=== PATIENT | female | born 1975 | race Two or more races ===

== ENCOUNTER 2016-08-24 18:53 | Emergency (ER) | payer MEDICAID ==
[~2016-08-24] VITALS: Ht 167.6 cm; Wt 68.0 kg
[2016-08-24] MEDS ORDERED: LORAZEPAM 0.5 MG TABLET PO ONE (21:00)
[2016-08-24] MEDS ORDERED: LORAZEPAM 1 MG TABLET ONE (21:02)
[2016-08-24 21:53] VITALS: BP 109/77
== END 2016-08-24 21:54 | disposition home or self-care (01) ==
LOC: ER 18:55
DX: F41.9 Anxiety disorder, unspecified (principal); R20.0 Anesthesia of skin; I10 Essential (primary) hypertension; Z98.890 Other specified postprocedural states
CPT/HCPCS: 93005; 99284; A4606; Z7610

== ENCOUNTER 2016-11-06 15:25 | Emergency (ER) | payer MEDICAID ==
[~2016-11-06] VITALS: Ht 175.3 cm; Wt 59.0 kg
--- NOTE | 2016-11-06 15:25 | NUR ---
Presents self to ed due to fever x 4 days. Pt is aao3, appears in no acute distress, respiration even and unlabored. Patient is also complaining of neck/ lymph nodes discomfort. Noted swollen and tender to touch. Patient is afebrile, non diaphoretic at this time.vss
--- NOTE | 2016-11-06 15:25 | NUR ---
Note undone in EDM - 11/06/16 at 1552 by HUAN Presents self to ed due to fever x 4 days. Pt is aao3, appears in no acute distress, respiration even and unlabored. Patient is also complaining of neck/ lymph nodes discomfort. Patient is afebrile, non diaphoretic at this time.vss
[2016-11-06] MEDS ORDERED: IV SET PRIMARY PUMP SET 1 EA INFUS.SET MC ONE (15:57)
[2016-11-06] MEDS ORDERED: IV NS 0.9% 1,000 ML ONE (15:57)
[2016-11-06] MEDS ORDERED: IV NS 0.9% 1,000 ML BAG IV ONE (16:00)
--- NOTE | 2016-11-06 16:11 | NUR ---
Iv accessed to [facility] 20. Blood sample sent to lab
[2016-11-06 16:12] LABS: BASOPHILS % (AUTO) 0.3 % (0.0-2.0); EOSINOPHILS # (AUTO) 0.1 /CMM (0.0-0.7); EOSINOPHILS % (AUTO) 1.4 % (0.0-6.0); HEMATOCRIT 35 % (33-45); HEMOGLOBIN 11.9 g/dL (11.5-14.8); LYMPHOCYTES # (AUTO) 1.4 /CMM (0.8-4.8); LYMPHOCYTES % (AUTO) 23.9 % (20.0-44.0); MEAN CORPUSCULAR HEMOGLOBIN 26 PG (26.0-33.0); MEAN CORPUSCULAR HGB CONC 34 g/dl (31.0-36.0); MEAN CORPUSCULAR VOLUME 78 fL (82-100); MONOCYTES # (AUTO) 0.5 /CMM (0.1-1.30); MONOCYTES % (AUTO) 7.9 % (2.0-12.0); NEUTROPHILS # (AUTO) 3.8 /CMM (1.8-8.9); NEUTROPHILS % (AUTO) 66.5 % (43.0-81.0); PLATELET COUNT (AUTO) 345 /CMM (150-450); RDW COEFFICIENT OF VARIATION 11.8 (11.5-15.0); RED BLOOD CELL COUNT(AUTO) 4.55 MIL/uL (4.0-5.2); WHITE BLOOD COUNT (AUTO) 5.8 K/uL (4.3-11.0)
[2016-11-06 16:21] LABS: CALCIUM, SERUM 9.3 mg/dL (8.5-10.1); CREATININE 0.5 mg/dL (0.6-1.3); POTASSIUM 3.8 mmol/L (3.5-5.1)
--- NOTE | 2016-11-06 16:24 | NUR ---
Nancy everett in [facility] - 11/06/16 at 1624 by HUAN pt was taken to ct
--- NOTE | 2016-11-06 16:24 | NUR ---
pt was taken to radiology dept
[2016-11-06 17:13] LABS: APPEARANCE,URINE Clear (CLEAR); BILIRUBIN,URINE Negative (NEGATIVE); BLOOD, URINE Trace-intact Ery/uL (NEGATIVE); COLOR,URINE Yellow (YELLOW); KETONES,URINE Negative (NEGATIVE); LEUKOCYTE ESTERASE ,URINE Negative (NEGATIVE); NITRITE, URINE Negative (NEGATIVE); PROTEIN,URINE Negative (NEGATIVE); UGLUCOSE Negative (NEGATIVE); UROBILINOGEN,URINE 0.2 EU/dL (0.2)
[2016-11-06 17:32] LABS: ADD URINE CULTURE NO; BACTERIA,URINE Rare /HPF (None Seen); RBC,URINE 0-2 /HPF (0-2); SQUAMOUS EPITHELIAL CELL,UR Few /HPF (None Seen); WBC,URINE 0-2 /HPF (0-3)
[2016-11-06] MEDS ORDERED: IV NS 0.9% 250 ML IV ONE (17:44)
[2016-11-06] MEDS ORDERED: IOHEXOL-300 100 ML VIAL IV ONE (17:44)
[2016-11-06] MEDS ORDERED: CT SWABBABLE VALVE TRANS SET 1 EA INFUS.SET MC ONE (17:44)
--- NOTE | 2016-11-06 19:34 | NUR ---
IV removed. Catheter intact and site benign. Pressure and 4x4 applied to site. No bleeding noted.
--- NOTE | 2016-11-06 19:34 | NUR ---
Patient discharged to home in stable condition. Written and verbal after care instructions given. Patient verbalizes understanding of instruction.
[2016-11-06 19:36] VITALS: BP 124/70
== END 2016-11-06 19:36 | disposition home or self-care (01) ==
LOC: ER 15:26
DX: E04.1 Nontoxic single thyroid nodule (principal); E05.90 Thyrotoxicosis, unspecified without thyrotoxic crisis or storm; I10 Essential (primary) hypertension; F41.9 Anxiety disorder, unspecified; R00.0 Tachycardia, unspecified
CPT/HCPCS: 36415; 70360-TC; 70491-TC; 76536-TC; 80048-TC; 81000-TC; 84436-TC; 84439-TC; 84443-TC; 84481; 85025-TC; A4606; J7030; J7050; Q9967; Z7610

== ENCOUNTER 2017-04-13 20:30 | Emergency (ER) | payer MEDICAID ==
[~2017-04-13] VITALS: Ht 167.6 cm; Wt 59.0 kg
[2017-04-13 21:01] VITALS: BP 116/69
== END 2017-04-13 22:46 | disposition home or self-care (01) ==
LOC: ER 20:30
DX: S70.361A Insect bite (nonvenomous), right thigh, initial encounter (principal); S80.862A Insect bite (nonvenomous), left lower leg, initial encounter; W57.XXXA Bitten or stung by nonvenomous insect and other nonvenomous arthropods, initial encounter; Y92.89 Other specified places as the place of occurrence of the external cause; Y93.89 Activity, other specified; Y99.8 Other external cause status
CPT/HCPCS: A4606; Z7610

== ENCOUNTER 2017-09-05 01:30 | Emergency (ER) | payer MEDICAID ==
[~2017-09-05] VITALS: Ht 175.3 cm; Wt 61.2 kg
[2017-09-05 01:44] VITALS: BP 136/91
[2017-09-05] MEDS ORDERED: PANTOPRAZOLE 40 MG TABLET.DR PO ONE ×2 (03:30→03:34)
[2017-09-05] MEDS ORDERED: ONDANSETRON 4 MG TAB.RAPDIS SL ONE (03:30)
[2017-09-05] MEDS ORDERED: ONDANSETRON 4 MG TAB.RAPDIS ONE (03:33)
--- NOTE | 2017-09-05 03:48 | NUR ---
Patient discharged to home in stable condition. Written and verbal after care instructions given. Patient verbalizes understanding of instruction. VSS. AMBULATED WITH STEADY GAIT OUT OF ER.
== END 2017-09-05 03:49 | disposition home or self-care (01) ==
LOC: ER 01:32
DX: F41.9 Anxiety disorder, unspecified (principal); R11.10 Vomiting, unspecified; R19.7 Diarrhea, unspecified; F10.10 Alcohol abuse, uncomplicated; I10 Essential (primary) hypertension; R00.0 Tachycardia, unspecified; E05.90 Thyrotoxicosis, unspecified without thyrotoxic crisis or storm; Z98.890 Other specified postprocedural states
CPT/HCPCS: 99283; A4606; Q0162; Z7610

== ENCOUNTER 2018-07-06 15:06 | Emergency (ER) | payer MEDICAID, OTHER ==
[~2018-07-06] VITALS: Ht 165.1 cm; Wt 63.5 kg
[2018-07-06 15:06] VITALS: BP 139/85
== END 2018-07-06 16:08 | disposition home or self-care (01) ==
LOC: ER 15:14
DX: R20.2 Paresthesia of skin (principal); F41.9 Anxiety disorder, unspecified; I10 Essential (primary) hypertension; R00.0 Tachycardia, unspecified; F10.10 Alcohol abuse, uncomplicated; Y90.9 Presence of alcohol in blood, level not specified; Z96.661 Presence of right artificial ankle joint
CPT/HCPCS: A4606; Z7502; Z7610

== ENCOUNTER 2018-07-06 18:01 | Emergency (ER) | payer OTHER ==
[~2018-07-06] VITALS: Ht 175.3 cm; Wt 63.5 kg
[2018-07-06 18:56] LABS: BASOPHILS % (AUTO) 0.4 % (0.0-2.0); EOSINOPHILS % (AUTO) 0.5 % (0.0-6.0); HEMATOCRIT 42 % (33-45); HEMOGLOBIN 13.8 g/dL (11.5-14.8); LYMPHOCYTES # (AUTO) 1.2 /CMM (0.8-4.8); LYMPHOCYTES % (AUTO) 15.3 % (20.0-44.0); MEAN CORPUSCULAR HGB CONC 33 g/dl (31.0-36.0); MEAN CORPUSCULAR VOLUME 87 fL (82-100); MONOCYTES # (AUTO) 0.4 /CMM (0.1-1.30); MONOCYTES % (AUTO) 4.8 % (2.0-12.0); PLATELET COUNT (AUTO) 256 /CMM (150-450); RED BLOOD CELL COUNT(AUTO) 4.78 MIL/uL (4.0-5.2); WHITE BLOOD COUNT (AUTO) 7.6 K/uL (4.3-11.0)
[2018-07-06] MEDS ORDERED: IV NS 0.9% 1,000 ML BAG IV ONE (19:00)
--- NOTE | 2018-07-06 19:00 | NUR ---
PT BIB SELF C/O CP MIDSTERNAL SQUEEZING-LIKE, RADIATING TO GABRIEL BREASTS. PT ALSO REPORTS NAUSEA AND DIZZINESS. PT WAS SEEN HERE THIS AM FOR PARASTHESIAS AND ENDORSES A HX OF ANXIETY WITH RX FOR ATIVAN. RESP EVEN UNLABORED. SKIN WARM DRY. IN ER BED 13 ON MONITOR.
[2018-07-06 19:08] LABS: CALCIUM, SERUM 8.5 mg/dL (8.5-10.1); CARBON DIOXIDE 22 mmol/L (21-32); CHLORIDE 101 mmol/L (98-107); CREATININE 0.8 mg/dL (0.6-1.3); GLUCOSE 153 mg/dL (74-106); POTASSIUM 3.3 mmol/L (3.5-5.1); SODIUM SERUM 141 mmol/L (136-145); UREA NITROGEN, BLOOD 9 mg/dL (7-18)
[2018-07-06 19:23] LABS: D-DIMER 0.19 mg/L(FEU (0.17-0.50)
[2018-07-06 19:27] LABS: ALANINE AMINOTRANSFERASE 26 U/L (12-78); ALBUMIN 4.1 g/dL (3.4-5.0); ALKALINE PHOSPHATASE 61 U/L (46-116); ASPARTATE AMINOTRANSFERASE 17 U/L (15-37); B-TYPE NATRIURETIC PEPTIDE 26 PG/ML (0-125); BILIRUBIN,DIRECT 0.1 mg/dL (0.0-0.2); BILIRUBIN,TOTAL 0.7 mg/dL (0.2-1.0); TOTAL PROTEIN, SERUM 8.3 g/dL (6.4-8.2)
[2018-07-06 21:03] VITALS: BP 123/80
--- NOTE | 2018-07-06 21:03 | NUR ---
Patient discharged to home in stable condition. Written and verbal after care instructions given. Patient verbalizes understanding of instruction. IV removed. Catheter intact and site benign. Pressure and 4x4 applied to site. No bleeding noted. AMBULATORY STEADY GAIT.
== END 2018-07-06 21:04 | disposition home or self-care (01) ==
LOC: ER 18:07
DX: R07.89 Other chest pain (principal); R00.2 Palpitations; F41.9 Anxiety disorder, unspecified; R29.0 Tetany; R42 Dizziness and giddiness; I10 Essential (primary) hypertension; R00.0 Tachycardia, unspecified; F10.10 Alcohol abuse, uncomplicated; Y90.9 Presence of alcohol in blood, level not specified; Z96.661 Presence of right artificial ankle joint
CPT/HCPCS: 36415; 71045-TC; 80048-TC; 80076-TC; 83880; 84484-TC; 84702-TC; 85025-TC; 85378-TC; 85730-TC; A4606; J7030; Z7610

== ENCOUNTER 2019-03-23 12:08 | Emergency (ER) | payer OTHER ==
[~2019-03-23] VITALS: Ht 172.7 cm; Wt 59.0 kg
[2019-03-23 12:37] VITALS: BP 124/85
[2019-03-23 13:06] LABS: APPEARANCE,URINE Clear (CLEAR); BILIRUBIN,URINE Negative (NEGATIVE); BLOOD, URINE Negative Ery/uL (NEGATIVE); COLOR,URINE Yellow (YELLOW); KETONES,URINE Negative (NEGATIVE); LEUKOCYTE ESTERASE ,URINE Small (NEGATIVE); NITRITE, URINE Negative (NEGATIVE); PH,URINE 7.5 (5.0-8.0); PROTEIN,URINE Negative (NEGATIVE); UGLUCOSE Negative (NEGATIVE); UROBILINOGEN,URINE 0.2 EU/dL (0.2)
[2019-03-23 13:11] LABS: BACTERIA,URINE Rare /HPF (None Seen); RBC,URINE 0-2 /HPF (0-2); SQUAMOUS EPITHELIAL CELL,UR Few /HPF (None Seen); WBC,URINE 0-2 /HPF (0-3)
== END 2019-03-23 15:19 | disposition home or self-care (01) ==
LOC: ER 12:08
DX: S20.222A Contusion of left back wall of thorax, initial encounter (principal); B37.3 Candidiasis of vulva and vagina; R00.0 Tachycardia, unspecified; I10 Essential (primary) hypertension; F41.9 Anxiety disorder, unspecified; F10.10 Alcohol abuse, uncomplicated; Y90.9 Presence of alcohol in blood, level not specified; Z98.890 Other specified postprocedural states; X58.XXXA Exposure to other specified factors, initial encounter; Y93.11 Activity, swimming; Y92.34 Swimming pool (public) as the place of occurrence of the external cause; Y99.8 Other external cause status
CPT/HCPCS: 81000-TC; 84703-TC; 87070-TC; 87210-TC

== ENCOUNTER 2020-02-09 15:52 | Emergency (ER) | payer OTHER ==
[~2020-02-09] VITALS: Ht 172.7 cm; Wt 54.4 kg
--- NOTE | 2020-02-09 15:52 | NUR ---
PT BIB SELF C/O NECK PAIN FOR 1 WEEK. PT IS AAOX4, NOT IN RESPIRATORY DISTRESS, V.S STABLE, KEPT RESTED AND COMFORTABLE. WILL CONTINUE TO MONITOR.
--- NOTE | 2020-02-09 16:25 | NUR ---
SEEN AND EXAMINED BY .
--- NOTE | 2020-02-09 16:40 | NUR ---
IV LINE ESTABLISHED BLOOD DRAWN AND SENT TO LAB.
[2020-02-09 16:48] LABS: BASOPHILS % (AUTO) 0.4 % (0.0-2.0); EOSINOPHILS % (AUTO) 0.8 % (0.0-6.0); HEMATOCRIT 41 % (33-45); HEMOGLOBIN 13.7 g/dL (11.5-14.8); LYMPHOCYTES # (AUTO) 1.5 /CMM (0.8-4.8); LYMPHOCYTES % (AUTO) 31.7 % (20.0-44.0); MEAN CORPUSCULAR HGB CONC 33 g/dl (31.0-36.0); MEAN CORPUSCULAR VOLUME 88 fL (82-100); MONOCYTES # (AUTO) 0.3 /CMM (0.1-1.30); MONOCYTES % (AUTO) 6.3 % (2.0-12.0); NEUTROPHILS # (AUTO) 2.9 /CMM (1.8-8.9); NEUTROPHILS % (AUTO) 60.8 % (43.0-81.0); PLATELET COUNT (AUTO) 238 /CMM (150-450); RED BLOOD CELL COUNT(AUTO) 4.69 MIL/uL (4.0-5.2); WHITE BLOOD COUNT (AUTO) 4.8 K/uL (4.3-11.0)
[2020-02-09 16:58] LABS: CALCIUM, SERUM 10.1 mg/dL (8.5-10.1); CARBON DIOXIDE 26 mmol/L (21-32); CHLORIDE 101 mmol/L (98-107); CREATININE 0.6 mg/dL (0.6-1.3); GLUCOSE 93 mg/dL (74-106); POTASSIUM 3.5 mmol/L (3.5-5.1); SODIUM SERUM 137 mmol/L (136-145); UREA NITROGEN, BLOOD 12 mg/dL (7-18)
[2020-02-09 17:03] LABS: ALANINE AMINOTRANSFERASE 87 U/L (12-78); ALBUMIN 4.6 g/dL (3.4-5.0); ALKALINE PHOSPHATASE 53 U/L (46-116); ASPARTATE AMINOTRANSFERASE 48 U/L (15-37); BILIRUBIN,DIRECT 0.2 mg/dL (0.0-0.2); BILIRUBIN,TOTAL 0.9 mg/dL (0.2-1.0); TOTAL PROTEIN, SERUM 8.5 g/dL (6.4-8.2)
[2020-02-09 18:40] VITALS: BP 127/91
--- NOTE | 2020-02-09 18:40 | NUR ---
IV removed. Catheter intact and site benign. Pressure and 4x4 applied to site. No bleeding noted.Patient discharged to home in stable condition. Written and verbal after care instructions given. Patient verbalizes understanding of instruction.
[2020-02-09 21:15] LABS: THYROID STIMULATING HORMONE 1.69 uIU/mL (0.358-3.74)
[2020-02-10 00:46] LABS: T4 (THYROXINE) 5.7 ug/dL (4.7-13.3)
== END 2020-02-09 18:40 | disposition home or self-care (01) ==
LOC: ER 16:30
DX: M54.2 Cervicalgia (principal); F41.9 Anxiety disorder, unspecified; R74.0 Nonspecific elevation of levels of transaminase and lactic acid dehydrogenase [LDH]; I10 Essential (primary) hypertension; Z98.890 Other specified postprocedural states
CPT/HCPCS: 36415; 70360-TC; 71045-TC; 76536-TC; 80048-TC; 80076-TC; 84436-TC; 84439-TC; 84443-TC; 84480; 84481; 84484-TC; 85025-TC

== ENCOUNTER 2021-10-10 19:32 | Emergency (ER) | payer OTHER ==
[~2021-10-10] VITALS: Ht 172.7 cm; Wt 47.6 kg
[2021-10-10 19:32] VITALS: BP 123/86
[2021-10-10] MEDS ORDERED: TDAP [DIPH/PERTUSSIS/TET] 0.5 ML VIAL IM ONE ×2 (21:00→21:04)
== END 2021-10-10 21:51 | disposition home or self-care (01) ==
LOC: ER 19:36
DX: S00.81XA Abrasion of other part of head, initial encounter (principal); R51.9 Headache, unspecified; M54.2 Cervicalgia; I10 Essential (primary) hypertension; F41.9 Anxiety disorder, unspecified; Z86.79 Personal history of other diseases of the circulatory system; Z87.81 Personal history of (healed) traumatic fracture; Y04.2XXA Assault by strike against or bumped into by another person, initial encounter; Y93.89 Activity, other specified; Y92.89 Other specified places as the place of occurrence of the external cause; Y99.8 Other external cause status
CPT/HCPCS: 70450; 70486; 72125; 90471; 90715; 99284; L0172

== ENCOUNTER 2024-05-05 12:06 | Emergency (ER) | payer OTHER ==
[~2024-05-05] VITALS: Ht 172.7 cm; Wt 54.4 kg
[2024-05-05] MEDS ORDERED: IBUPROFEN 600 MG TABLET ONE (12:40)
[2024-05-05] MEDS: IBUPROFEN 600 MG TABLET PO ONE (12:42)
[2024-05-05 12:58] LABS: APPEARANCE,URINE CLEAR (CLEAR); BILIRUBIN,URINE 1+ (NEGATIVE); BLOOD, URINE TRACE-INTA Ery/uL (NEGATIVE); COLOR,URINE YELLOW (YELLOW); KETONES,URINE TRACE mg/dL (NEGATIVE); LEUKOCYTE ESTERASE ,URINE TRACE (NEGATIVE); NITRITE, URINE NEGATIVE (NEGATIVE); PROTEIN,URINE NEGATIVE (NEGATIVE); UGLUCOSE NEGATIVE (NEGATIVE); UROBILINOGEN,URINE 0.2 EU/dL (0.2)
[2024-05-05 13:26] LABS: ADD URINE CULTURE YES; BACTERIA,URINE Moderate /HPF (None Seen); CALCIUM OXALATE CRYSTALS,UR Rare /HPF (None Seen)
[2024-05-05 13:30] LABS: PREGNANCY TEST URINE QUAL NEGATIVE (NEGATIVE)
[2024-05-05] MEDS ORDERED: NITR100C6 PO (13:33)
[2024-05-05] MEDS ORDERED: NITROFURANTOIN/MONOHYDRATE MACROCRYSTALS 100 MG CAPSULE ONE (13:40)
[2024-05-05] MEDS: NITROFURANTOIN/MONOHYDRATE MACROCRYSTALS 100 MG CAPSULE PO ONE (13:44)
[2024-05-05 14:04] VITALS: BP 124/72; TEMP 97.7; O2SAT 100
== END 2024-05-05 14:04 | disposition home or self-care (01) ==
LOC: ER 12:16
DX: N39.0 Urinary tract infection, site not specified (principal); I10 Essential (primary) hypertension; M54.59 Other low back pain; F41.9 Anxiety disorder, unspecified; Z86.79 Personal history of other diseases of the circulatory system; Z87.39 Personal history of other diseases of the musculoskeletal system and connective tissue
CPT/HCPCS: 81001; 84703-TC; 87086-TC